=== PATIENT | female | born 1965 ===

== ENCOUNTER 2017-08-29 20:52 | Emergency (ER) | payer BC, OTHER ==
[~2017-08-29] VITALS: Ht 170.2 cm; Wt 84.4 kg
[2017-08-29 21:07] VITALS: BP 153/95
[2017-08-30] MEDS ORDERED: IBUPROFEN 600 MG TAB PO ONE (00:30)
== END 2017-08-30 00:36 | disposition home or self-care (01) ==
LOC: ER 20:56
DX: K08.89 Other specified disorders of teeth and supporting structures (principal)

== ENCOUNTER 2021-06-23 07:26 | Emergency (ER) | payer BC ==
[~2021-06-23] VITALS: Ht 170.2 cm; Wt 88.0 kg
[2021-06-23 07:31] VITALS: BP 156/93
== END 2021-06-23 07:41 | disposition left against medical advice (07) ==
LOC: ER 07:26
DX: M79.601 Pain in right arm (principal); Z53.21 Procedure and treatment not carried out due to patient leaving prior to being seen by health care provider